=== PATIENT | male | born 1965 | race Hispanic/Latino ===

== ENCOUNTER → 2020-04-18 | Outpatient (CLI) | payer OTHER | END | disposition home or self-care (01) | LOC: DAH 10:00 → EDSTATUS 04-22 20:23 | PROVIDERS: ATTEND Internal Medicine Gastroenterology | DX: K70.31 Alcoholic cirrhosis of liver with ascites (principal); Z20.828 Contact with and (suspected) exposure to other viral communicable diseases; K80.20 Calculus of gallbladder without cholecystitis without obstruction; G93.49 Other encephalopathy; K76.7 Hepatorenal syndrome; J90 Pleural effusion, not elsewhere classified; Z53.8 Procedure and treatment not carried out for other reasons; Z98.890 Other specified postprocedural states; Z82.49 Family history of ischemic heart disease and other diseases of the circulatory system; Z79.899 Other long term (current) drug therapy; Z87.891 Personal history of nicotine dependence | CPT/HCPCS: C9803; U0003; 36415 ==